=== PATIENT | female | born 2000 | race Caucasian/White ===

== ENCOUNTER 2022-01-17 16:13 | Emergency (ER) | payer OTHER, SELFPAY ==
[2022-01-17 16:16] VITALS: BP 141/85; PULSE 109; RESP 20; TEMP 36.3; O2SAT 100
--- NOTE | 2022-01-17 17:21 | ED.SKABFB ---
HPI - Skin/Abscess/Foreign Bdy General Chief complaint: Skin/Abscess/Foreign Body Stated complaint: wound left calf Time Seen by Provider: 01/17/22 16:33 Source: patient Mode of arrival: ambulatory Limitations: no limitations History of Present Illness HPI narrative: 21-year-old otherwise healthy here with complaints of pain and swelling and redness to her left leg for past few days. Patient states she went to urgent care and was given Bactrim now the redness is spreading distally. She denies any fever or chills. She is concerned about her redness spreading. complaint: abscess/boil Onset (ago): day(s) (4) Location: LLE Severity: mild Quality: dull Pain Consistency: constant Relieving factors: none Exacerbating factors: none Context: none Related Data Allergies Allergy/AdvReac Type Severity Reaction Status Date / Time No Known Allergies Allergy Unverified 10/19/11 14:24 Review of Systems Review of Systems: All systems reviewed & are unremarkable except as noted in HPI and below Constitutional: Constitutional: Reports no additional constitutional complaints Eyes: Eyes: Reports no additional eye complaints ENT: Reports system reviewed and no additional complaints, except as documented Cardiovascular: Cardiovascular: Reports as per HPI Respiratory: Respiratory: Reports no additional respiratory complaints Musculoskeletal: Musculoskeletal: Reports as per HPI Integumentary/Breasts: Skin/Breast: Reports as per HPI Exam Narrative: GENERAL: Well-appearing, well-nourished, and in no acute distress. HEAD: Normocephalic, atraumatic. EYES: PERRLA and EOMI. NECK: Supple. CHEST: Clear to auscultation. No respiratory distress. HEART: Regular rate and rhythm. No murmur heard. Normal peripheral pulses.. EXTREMITIES: Normal range of motion. No edema. Left lower extremity is a small boil with erythema about 3 to 4 cm in diameter, no drainable abscess below the popliteal fossa SKIN: Warm, dry, no rash. NEURO: No focal deficits. Alert and oriented x3. PSYCH: Normal mood and affect. Course Course Emergency Course: Advised her to stop Bactrim and start clindamycin as she has been on it for 4 days with no relief. Also recommended warm compress. Follow-up with her primary doctor. Vital Signs Vital signs: Vital Signs Temperature 36.3 C L 01/17/22 16:16 Pulse Rate 109 H 01/17/22 16:16 Respiratory Rate 20 01/17/22 16:16 Blood Pressure 141/85 H 01/17/22 16:16 Pulse Oximetry 100 01/17/22 16:16 Temperature 36.3 C L 01/17/22 16:16 Pulse Rate 109 H 01/17/22 16:16 Respiratory Rate 20 01/17/22 16:16 Blood Pressure 141/85 H 01/17/22 16:16 Pulse Oximetry 100 01/17/22 16:16 Discharge Plan Discharge Clinical Impression: Cellulitis Qualifiers: Site of cellulitis: extremity Site of cellulitis of extremity: lower extremity Laterality: left Qualified Code(s): L03.116 - Cellulitis of left lower limb Patient Disposition: Home, Self-Care Condition: Stable Instructions: Antibiotic Form, Cellulitis (ED) Additional Instructions: take antibiotic as prescribed , warm compress , follow with your doctor. Prescriptions: New clindamycin HCl 300 mg capsule 300 mg PO Q8H Qty: 30 RF: 0 Follow-up/Referrals: Cory,MD Sweetie [Primary Care Provider] - Time of Disposition: 17:23
[2022-01-17 17:39] VITALS: BP 126/74; PULSE 74; RESP 16; TEMP 36.6; O2SAT 100
== END 2022-01-17 17:40 | disposition home or self-care (01) ==
PROVIDERS: Emergency Provider Family Medicine; PCP Internal Medicine
DX: L03.116 Cellulitis of left lower limb (principal)
CPT/HCPCS: 99283